=== PATIENT | male | born 1980 | race African-American/Black ===

== ENCOUNTER 2016-09-25 12:46 | Emergency (ER) | payer MEDICAID ==
[~2016-09-25] VITALS: Ht 180.3 cm; Wt 102.1 kg
[~2016-09-25 12:46] MED LIST: AMLO10TA2 PO; LISI-170 PO; PRAV10TA2 PO
[2016-09-25 13:04] VITALS: BP 129/71
== END 2016-09-25 13:58 | disposition home or self-care (01) ==
LOC: ED 13:30
DX: S76.011A Strain of muscle, fascia and tendon of right hip, initial encounter (principal); M46.1 Sacroiliitis, not elsewhere classified; I10 Essential (primary) hypertension
CPT/HCPCS: 99283